=== PATIENT | male | born 1940 | race Caucasian/White ===

== ENCOUNTER 2021-02-27 14:06 | Inpatient (IN) | payer MEDICARE ==
[2021-02-27] MEDS ORDERED: PIPERACILLIN-TAZOBACTAM 3.375 GM in SODIUM CHLORIDE 0.9% 100 ML IVPB STA (15:00)
[2021-02-27] MEDS ORDERED: VANCOMYCIN IV PER PHARMACY 1 EACH MISC MISCELLANE PRN (15:07)
[2021-02-27] MEDS ORDERED: VANCOMYCIN 1,250 MG in SODIUM CHLORIDE 0.9% 250 ML IVPB STA (15:10)
--- NOTE | 2021-02-27 15:13 | ED ---
General Adult HPI - General Chief complaint: Abdominal Pain Stated complaint: Abd pain Time Seen by Provider: 02/27/21 14:15 Source: patient, family, RN notes reviewed, old records reviewed Mode of arrival: wheelchair Limitations: no limitations - History of Present Illness Initial comments: This is a 81-year-old male who presents emergency department with past medical history significant for peritoneal dialysis. Patient also has diabetes. Patient comes in today because he started complaining of abdominal pain 2 nights ago and today the dialysate was very cloudy. Patient states abdominal pain is diffuse. Family has not noted any fever chills. Patient denies any chest pain difficult breathing shortness of breath per patient denies any cough. Patient denies any swelling to the legs or calf tenderness. Patient denies any lightheadedness or dizziness. - Related Data Home Medications Medication Instructions Recorded Confirmed Apixaban [Eliquis] 2.5 mg PO BID 02/27/21 02/27/21 Aspirin EC [Ecotrin Low Dose] 162 mg PO DAILY 02/27/21 02/27/21 Atorvastatin [Lipitor] 40 mg PO HS 02/27/21 02/27/21 Furosemide [Lasix] 80 mg PO BID 02/27/21 02/27/21 Insulin Glargine,Hum.rec.anlog 17 unit SQ DAILY 02/27/21 02/27/21 [Lantus Solostar Pen] Levothyroxine Sodium [Synthroid] 50 mcg PO DAILY 02/27/21 02/27/21 Metoprolol Succinate [Toprol XL] 12.5 mg PO BID 02/27/21 02/27/21 Midodrine [ProAmatine] 10 mg PO BID 02/27/21 02/27/21 Nitroglycerin Sl Tabs [Nitrostat] 0.4 mg SUBLINGUAL Q5M PRN 02/27/21 02/27/21 Potassium Chloride [Potassium 10 meq PO DAILY 02/27/21 02/27/21 Chloride ER] Allergies Allergy/AdvReac Type Severity Reaction Status Date / Time No Known Allergies Allergy Verified 02/27/21 16:25 Review of Systems ROS Statement: Those systems with pertinent positive or pertinent negative responses have been documented in the HPI. ROS Other: All systems not noted in ROS Statement are negative. Past Medical History Past Medical History: Atrial Fibrillation, Heart Failure, Diabetes Mellitus, Dialysis, Renal Disease History of Any Multi-Drug Resistant Organisms: None Reported Past Surgical History: Cardiac Valve Replacement, Coronary Bypass/CABG, Joint Replacement, Orthopedic Surgery Past Psychological History: No Psychological Hx Reported Smoking Status: Never smoker Past Alcohol Use History: None Reported Past Drug Use History: None Reported General Exam - General Exam Comments Initial Comments: GENERAL: Patient is well-developed and well-nourished. Patient is nontoxic and well- hydrated and is in mild distress. ENT: Neck is soft and supple. No significant lymphadenopathy is noted. Oropharynx is clear. Moist mucous membranes. Neck has full range of motion without eliciting any pain. EYES: The sclera were anicteric and conjunctiva were pink and moist. Extraocular movements were intact and pupils were equal round and reactive to light. Eyelids were unremarkable. PULMONARY: Unlabored respirations. Good breath sounds bilaterally. No audible rales rhonchi or wheezing was noted. CARDIOVASCULAR: There is a regular rate and rhythm without any murmurs gallops or rubs. ABDOMEN: Diffuse abdominal tenderness SKIN: Skin is clear with no lesions or rashes and otherwise unremarkable. NEUROLOGIC: Patient is alert and oriented x3. Cranial nerves II through XII are grossly intact. Motor and sensory are also intact. Normal speech, volume and content. Symmetrical smile. MUSCULOSKELETAL: Normal extremities with adequate strength and full range of motion. No lower extremity swelling or edema. No calf tenderness. LYMPHATICS: No significant lymphadenopathy is noted PSYCHIATRIC: Normal psychiatric evaluation. Limitations: no limitations Course Vital Signs 02/27/21 14:11 Temperature 98.0 F Pulse Rate 74 Respiratory 18 Rate Blood Pressure 112/64 O2 Sat by Pulse 100 Oximetry Medical Decision Making - Medical Decision Making Patient received IV ceftazidime and vancomycin I spoke with Dr. Calloway he agreed to consult on the patient and order the appropriate intraperitoneal antibiotics. I spoke with Dr. Heller he agreed to that the patient admitted the patient wrote admitting orders EKG showed undetermined rhythm with multiple PVCs at a rate of 82 bpm QRS is under 10 Q-T intervals 4:30 QTC is 502. Patient's EKG showed a prolonged QT intervals - Lab Data Result diagrams: 02/27/21 15:48 02/27/21 15:48 Lab Results 02/27/21 02/27/21 02/27/21 Range/Units 15:48 15:48 15:48 WBC 6.7 (3.8-10.6) k/uL RBC 4.61 (4.30-5.90) m/uL Hgb 13.7 (13.0-17.5) gm/dL Hct 38.6 L (39.0-53.0) % MCV 83.7 (80.0-100.0) fL MCH 29.8 (25.0-35.0) pg MCHC 35.6 (31.0-37.0) g/dL RDW 13.7 (11.5-15.5) % Plt Count 161 (150-450) k/uL MPV 8.7 Neutrophils % 79 % Lymphocytes % 12 % Monocytes % 5 % Eosinophils % 2 % Basophils % 0 % Neutrophils # 5.3 (1.3-7.7) k/uL Lymphocytes # 0.8 L (1.0-4.8) k/uL Monocytes # 0.4 (0-1.0) k/uL Eosinophils # 0.1 (0-0.7) k/uL Basophils # 0.0 (0-0.2) k/uL Hyperchromasia Moderate Poikilocytosis Slight PT 11.0 (9.0-12.0) sec INR 1.0 (<1.2) APTT 26.8 (22.0-30.0) sec Sodium (137-145) mmol/L Potassium (3.5-5.1) mmol/L Chloride (98-107) mmol/L Carbon Dioxide (22-30) mmol/L Anion Gap mmol/L BUN (9-20) mg/dL Creatinine (0.66-1.25) mg/dL Est GFR (CKD-EPI)AfAm (>60 ml/min/1.73 sqM) Est GFR (CKD-EPI)NonAf (>60 ml/min/1.73 sqM) Glucose (74-99) mg/dL Plasma Lactic Acid John (0.7-2.0) mmol/L Calcium (8.4-10.2) mg/dL Total Bilirubin (0.2-1.3) mg/dL AST (17-59) U/L ALT (4-49) U/L Alkaline Phosphatase (38-126) U/L Lactate Dehydrogenase (313-618) U/L Total Protein (6.3-8.2) g/dL Albumin (3.5-5.0) g/dL Amylase (30-110) U/L Urine Color Yellow Urine Appearance Clear (Clear) Urine pH 5.0 (5.0-8.0) Ur Specific [place] 1.015 (1.001-1.035) Urine Protein Trace H (Negative) Urine Glucose (UA) 1+ H (Negative) Urine Ketones Negative (Negative) Urine Blood Small H (Negative) Urine Nitrite Negative (Negative) Urine Bilirubin Negative (Negative) Urine Urobilinogen <2.0 (<2.0) mg/dL Ur Leukocyte Esterase Moderate H (Negative) Urine RBC 14 H (0-5) /hpf Urine WBC 7 H (0-5) /hpf Ur Squamous Epith Cells <1 (0-4) /hpf Urine Bacteria Rare H (None) /hpf Hyaline Casts 22 H (0-2) /lpf Urine Mucus Rare H (None) /hpf 02/27/21 02/27/21 Range/Units 15:48 15:48 WBC (3.8-10.6) k/uL RBC (4.30-5.90) m/uL Hgb (13.0-17.5) gm/dL Hct (39.0-53.0) % MCV (80.0-100.0) fL MCH (25.0-35.0) pg MCHC (31.0-37.0) g/dL RDW (11.5-15.5) % Plt Count (150-450) k/uL MPV Neutrophils % % Lymphocytes % % Monocytes % % Eosinophils % % Basophils % % Neutrophils # (1.3-7.7) k/uL Lymphocytes # (1.0-4.8) k/uL Monocytes # (0-1.0) k/uL Eosinophils # (0-0.7) k/uL Basophils # (0-0.2) k/uL Hyperchromasia Poikilocytosis PT (9.0-12.0) sec INR (<1.2) APTT (22.0-30.0) sec Sodium 136 L (137-145) mmol/L Potassium 3.5 (3.5-5.1) mmol/L Chloride 94 L (98-107) mmol/L Carbon Dioxide 30 (22-30) mmol/L Anion Gap 12 mmol/L BUN 63 H (9-20) mg/dL Creatinine 4.70 H (0.66-1.25) mg/dL Est GFR (CKD-EPI)AfAm 12 (>60 ml/min/1.73 sqM) Est GFR (CKD-EPI)NonAf 11 (>60 ml/min/1.73 sqM) Glucose 182 H (74-99) mg/dL Plasma Lactic Acid John 1.6 (0.7-2.0) mmol/L Calcium 9.0 (8.4-10.2) mg/dL Total Bilirubin 1.3 (0.2-1.3) mg/dL AST 18 (17-59) U/L ALT 14 (4-49) U/L Alkaline Phosphatase 73 (38-126) U/L Lactate Dehydrogenase 457 (313-618) U/L Total Protein 7.0 (6.3-8.2) g/dL Albumin 3.6 (3.5-5.0) g/dL Amylase 55 (30-110) U/L Urine Color Urine Appearance (Clear) Urine pH (5.0-8.0) Ur Specific [place] (1.001-1.035) Urine Protein (Negative) Urine Glucose (UA) (Negative) Urine Ketones (Negative) Urine Blood (Negative) Urine Nitrite (Negative) Urine Bilirubin (Negative) Urine Urobilinogen (<2.0) mg/dL Ur Leukocyte Esterase (Negative) Urine RBC (0-5) /hpf Urine WBC (0-5) /hpf Ur Squamous Epith Cells (0-4) /hpf Urine Bacteria (None) /hpf Hyaline Casts (0-2) /lpf Urine Mucus (None) /hpf Disposition Clinical Impression: Peritoneal dialysis-associated peritonitis Disposition: ADMITTED IP TO THIS [facility] Referrals: Akanksha Gauthier MD [Primary Care Provider] - 1-2 days Time of Disposition: 18:11
[2021-02-27] MEDS: SODIUM CHLORIDE 0.9% 500 ML 500 ML IV SCH ×2 (16:43→22:15)
[2021-02-27 16:47] LABS: Albumin 3.6 g/dL (3.5-5.0); Appearance,Urine Clear (Clear); Bacteria,Urine Rare /hpf; Bilirubin,Urine Negative (Negative); Blood,Urine Small (Negative); Color,Urine Yellow; Glucose,Urine (UA) 1+ (Negative); Hyaline Casts,Urine 22 /lpf (0-2); Ketones,Urine Negative (Negative); Leukocyte Esterase,Urine Moderate (Negative); Mucus,Urine Rare /hpf; Nitrite,Urine Negative (Negative); Potassium 3.5 mmol/L (3.5-5.1); Protein,Urine Trace (Negative); RBC,Urine 14 /hpf (0-5); Specific Gravity,Urine 1.015 (1.001-1.035); Squamous Epithelial Cell,Urine <1 /hpf (0-4); Total Bilirubin 1.3 mg/dL (0.2-1.3); Urobilinogen,Urine <2.0 mg/dL (<2.0); WBC,Urine 7 /hpf (0-5)
[2021-02-27 16:50] LABS: Partial Thromboplastin Time 26.8 sec (22.0-30.0)
[2021-02-27 17:24] LABS: Basophils % (A) 0 %; Eosinophils # (A) 0.1 k/uL (0-0.7); Eosinophils % (A) 2 %; HCT 38.6 % (39.0-53.0); HGB 13.7 gm/dL (13.0-17.5); Hyperchromasia Moderate; Lymphocytes # (A) 0.8 k/uL (1.0-4.8); Lymphocytes % (A) 12 %; MCH 29.8 pg (25.0-35.0); MCHC 35.6 g/dL (31.0-37.0); MCV 83.7 fL (80.0-100.0); Mean Platelet Volume 8.7; Monocytes # (A) 0.4 k/uL (0-1.0); Monocytes % (A) 5 %; Neutrophils # (A) 5.3 k/uL (1.3-7.7); Neutrophils % (A) 79 %; Platelet Count 161 k/uL (150-450); Poikilocytosis Slight; RBC 4.61 m/uL (4.30-5.90); RDW 13.7 % (11.5-15.5); WBC 6.7 k/uL (3.8-10.6)
[2021-02-27] MEDS ORDERED: DIALYSIS (PERIT 1.5%) 2,000 ML 30 G/2,000 ML BAG INTRAPERIT SCH ×2 (18:00→23:00)
[2021-02-27] MEDS ORDERED: ONDANSETRON 4 MG/2 ML VIAL IVP PRN (19:34)
[2021-02-27] MEDS ORDERED: LACTULOSE 20 GM/30 ML CUP PO PRN (19:34)
[2021-02-27] MEDS ORDERED: NITROGLYCERIN SL TABS 0.4 MG TAB SUBLINGUAL PRN (19:34)
[2021-02-27] MEDS ORDERED: CALCIUM CARBONATE 500 MG CHEWABLE PO PRN (19:34)
[2021-02-27] MEDS ORDERED: NALOXONE 0.4 MG/ML 1 ML VIAL IV PRN (19:34)
[2021-02-27] MEDS ORDERED: MAG HYDROX/AL HYDROX/SIMETH 30 ML CUP PO PRN (19:34)
[2021-02-27] MEDS ORDERED: ALPRAZolam 0.25 MG TAB PO PRN (19:34)
[2021-02-27] MEDS ORDERED: ACETAMINOPHEN TAB 325 MG TAB PO PRN (19:34)
--- NOTE | 2021-02-27 19:54 | P.HPIM ---
History of Present Illness H&P Date: 02/27/21 Chief Complaint: Abdominal pain This is a 81-year-old patient who follows with Dr. Akanksha Gauthier. Chronic stable medical conditions include atrial fibrillation, CHF, diabetes, end-stage kidney disease on peritoneal dialysis, CAD with history of bypass, osteomyelitis, hyperlipidemia. Patient thinks he is on dialysis for last 15 months. Normally does not on dialysis. He has noticed that in the last 340s been having increasing lower abdominal pain. It is worse when he puts the dialysate inside. He is very slight nausea no vomiting. Denies any fever and chills. Appetite is okay. Recently has not is that his not a viable to give adequate his bowels completely. He has no trouble walking. He notices in the last 2 days patient yesterday that his dialysis and that came out was rather chocolatey/milky in color. In the ER patient did receive a dose of ceftazidime and vancomycin. Nephrology was consulted. Patient does make some urine. Review of systems: GEN.: Tired EYES: None HEENT: None NECK: None RESPIRATORY: None CARDIOVASCULAR: None GASTROINTESTINAL: As above GENITOURINARY: Does make some urine MUSCULOSKELETAL: Joint pains LYMPHATICS: None HEMATOLOGICAL: None PSYCHIATRY: None NEUROLOGICAL: None Past medical history to include: Atrial fibrillation, CHF, diabetes, end-stage kidney disease on peritoneal dialysis, CAD with bypass Social history: His son and [id number]. No history of smoking and alcohol Family history: Reviewed, noncontributory to presentation Physical examination: VITAL SIGNS: 98, 74, 18, 112/64, 100% room air GENERAL: BMI 24.3, sitting of vision in bed, awake, not in distress. EYES: Pupils equal. Conjunctiva normal. HEENT: External appearance of nose and ears normal, oral cavity grossly normal. NECK: JVD not raised; masses not palpable. HEART: First and second heart sounds are normal; no edema. LUNGS: Respiratory rate normal; clear to auscultation. ABDOMEN: Soft, some distention, mild tenderness, no guarding rigidity. PT catheter in place nontender, liver spleen not palpable, no masses palpable. PSYCH: Alert and oriented x3; mood and affect normal. MUSCULAR skeletal: Except for the thumb other fingers are missing. Evidence of OA in other joints. NEUROLOGICAL: Cranial nerves grossly intact; no facial asymmetry, power and sensation grossly intact. LYMPHATICS: No lymph nodes palpable in the axilla and neck INVESTIGATIONS, reviewed in the clinical context: White count 6.7 hemoglobin 13.7 platelets 161 potassium 3.5 BUN 73 creatinine 4.7 UA positive for leukoesterase, obesity, bacterial rate periods, 17 cells less than one Coronavirus [PCR]: Not detected EKG tracing personally reviewed by me shows: Atrial fibrillation. PVC. Rate controlled Assessment and plan: -Possible secondary bacterial peritonitis Patient been complaining of abdominal pain for last 3-4 days. No fever no chills. No leukocytosis. Has noticed the color of dialysate coming out to be chocolatey/milky color. Patient did receive a dose of ceftazidime and vancomycin the ER. Nephrology consulted. Darvocet fluid to be sent out for biochemical analysis and culture and Gram stain -End-stage kidney disease on peritoneal dialysis Nephrology consulted -CAD with a history of bypass Lopressor 12.5 by mouth twice a day and Lipitor, aspirin -Hyperlipidemia Lipitor 40 mg daily at bedtime -Hypothyroid Synthroid 50 g a day -Diabetes mellitus type 2 chronically on insulin Resume Lantus 17 units subcu daily. Follow Accu-Cheks -Essential hypertension Toprol-XL 12.5 by mouth twice a day -Persistent atrial fibrillation, ventricular rate controlled Eliquis 2.5 mg twice a day. Lopressor 12.5 by mouth twice a day Nephrology consulted. Ceftazidime and vancomycin given in the ER. Fluid to be sent off for Gram stain and culture. Home medications resumed. Care was discussed with the patient question also. Given the complexity and severity of patient's condition expect the patient to be in the hospital at least for 2 overnights Past Medical History Past Medical History: Atrial Fibrillation, Heart Failure, Diabetes Mellitus, Dialysis, Renal Disease History of Any Multi-Drug Resistant Organisms: None Reported Past Surgical History: Cardiac Valve Replacement, Coronary Bypass/CABG, Joint Replacement, Orthopedic Surgery Past Psychological History: No Psychological Hx Reported Smoking Status: Never smoker Past Alcohol Use History: None Reported Past Drug Use History: None Reported Medications and Allergies Home Medications Medication Instructions Recorded Confirmed Type Apixaban [Eliquis] 2.5 mg PO BID 02/27/21 02/27/21 History Aspirin EC [Ecotrin Low Dose] 162 mg PO DAILY 02/27/21 02/27/21 History Atorvastatin [Lipitor] 40 mg PO HS 02/27/21 02/27/21 History Furosemide [Lasix] 80 mg PO BID 02/27/21 02/27/21 History Insulin Glargine,Hum.rec.anlog 17 unit SQ DAILY 02/27/21 02/27/21 History [Lantus Solostar Pen] Levothyroxine Sodium [Synthroid] 50 mcg PO DAILY 02/27/21 02/27/21 History Metoprolol Succinate [Toprol XL] 12.5 mg PO BID 02/27/21 02/27/21 History Midodrine [ProAmatine] 10 mg PO BID 02/27/21 02/27/21 History Nitroglycerin Sl Tabs [Nitrostat] 0.4 mg SUBLINGUAL Q5M PRN 02/27/21 02/27/21 History Potassium Chloride [Potassium 10 meq PO DAILY 02/27/21 02/27/21 History Chloride ER] Allergies Allergy/AdvReac Type Severity Reaction Status Date / Time No Known Allergies Allergy Verified 02/27/21 16:25 Physical Exam Vitals: Vital Signs Temp Pulse Resp BP Pulse Ox 02/27/21 14:11 98.0 F 74 18 112/64 100 Intake and Output 02/27/21 02/27/21 02/27/21 06:59 14:59 22:59 Other: Weight 72.575 kg Results CBC & Chem 7: 02/27/21 15:48 02/27/21 15:48 Labs: Abnormal Lab Results - Last 24 Hours (Table) 02/27/21 02/27/21 02/27/21 Range/Units 15:48 15:48 15:48 Hct 38.6 L (39.0-53.0) % Lymphocytes # 0.8 L (1.0-4.8) k/uL Sodium 136 L (137-145) mmol/L Chloride 94 L (98-107) mmol/L BUN 63 H (9-20) mg/dL Creatinine 4.70 H (0.66-1.25) mg/dL Glucose 182 H (74-99) mg/dL Urine Protein Trace H (Negative) Urine Glucose (UA) 1+ H (Negative) Urine Blood Small H (Negative) Ur Leukocyte Esterase Moderate H (Negative) Urine RBC 14 H (0-5) /hpf Urine WBC 7 H (0-5) /hpf Urine Bacteria Rare H (None) /hpf Hyaline Casts 22 H (0-2) /lpf Urine Mucus Rare H (None) /hpf
--- NOTE | 2021-02-27 20:43 | XR ---
EXAMINATION TYPE: XR abdomen 2V DATE OF EXAM: 02/27/2021 COMPARISON: NONE HISTORY: Abdominal pain TECHNIQUE: 3 views FINDINGS: There is no sign of intestinal obstruction or pneumoperitoneum. Fecal pattern is normal. Th ere are some fibrotic changes at the lung bases. There are clips from cholecystectomy. There is appar ent dialysis catheter over the left side of the abdomen. IMPRESSION: Nonacute abdomen.
[2021-02-27] MEDS ORDERED: MIDODRINE 5 MG TAB PO SCH (21:00)
[2021-02-27] MEDS: APIXABAN 2.5 MG TABLET PO SCH (22:42)
[2021-02-27] MEDS: METOPROLOL SUCCINATE (ER) 25 MG TAB.ER.24H PO SCH (22:43)
[2021-02-27] MEDS: ATORVASTATIN 40 MG TAB PO SCH (22:43)
[2021-02-27] MEDS: FUROSEMIDE 80 MG TAB PO SCH (22:43)
[2021-02-28] MEDS ORDERED: DIALYSIS (PERIT 1.5%) 2,000 ML 30 G/2,000 ML BAG INTRAPERIT SCH ×2
[2021-02-28 02:41] LABS: Appearance,BF Hazy; Color,BF Yellow; Nucleated Cells, Body Fluid 2575 /uL; RBC, Body Fluid 38 /uL
[2021-02-28 02:42] LABS: Mononuclear WBC,Body Fluid 5 %; Polynuclear WBC,Body Fluid 95 %; Total Cells Counted,Body Fluid 100
[2021-02-28] MEDS ORDERED: INSULIN DETEMIR (LEVEMIR) 100 UNIT/ML SYR SQ SCH (07:00)
[2021-02-28 07:14] LABS: Glucose,Whole Blood 157 mg/dL (75-99)
[2021-02-28] MEDS: DIALYSIS (PERIT 1.5%) 2,000 ML 30 G/2,000 ML BAG INTRAPERIT SCH ×3 (08:46→18:48)
[2021-02-28] MEDS: POTASSIUM CHLORIDE ER 10 MEQ TAB.ER.PRT PO SCH (08:47)
[2021-02-28] MEDS: MIDODRINE 5 MG TAB PO SCH ×2 (08:47→18:03)
[2021-02-28] MEDS: ASPIRIN 81 MG PO SCH (08:47)
[2021-02-28] MEDS: FUROSEMIDE 80 MG TAB PO SCH ×2 (08:47→21:45)
[2021-02-28] MEDS: INSULIN ASPART (NovoLOG) 100 UNIT/ML VIAL SQ SCH ×4 (08:48→18:56)
[2021-02-28] MEDS: METOPROLOL SUCCINATE (ER) 25 MG TAB.ER.24H PO SCH ×2 (08:48→21:46)
[2021-02-28] MEDS: APIXABAN 2.5 MG TABLET PO SCH ×2 (08:48→21:42)
[2021-02-28] MEDS: LEVOTHYROXINE 50 MCG TAB PO SCH (08:49)
--- NOTE | 2021-02-28 10:21 | P.NPCON ---
History of Present Illness - Reason for Consult end stage renal disease - History of Present Illness Reason for consultation: End-stage renal disease History of present illness: Patient is a 81-year-old male seen in renal consultation for end-stage renal disease. He is maintained on peritoneal dialysis. Patient presented to the hospital as he noticed cloudy dialysate. He was also complaining of abdominal discomfort. No vomiting or diarrhea. No chest pain or shortness of breath. No fever or chills. No cough. Blood pressure stable. Cell count from last night came back at 2575 with 95% PMNs. He's currently receiving intraperitoneal vancomycin as well as Fortaz. Fluid culture is pending. He currently denies abdominal pain. No problems with peritoneal dialysis exchanges. Vital signs are stable. General: The patient appeared well nourished and normally developed. HEENT: Head exam is unremarkable. LUNGS: Breath sounds decreased. HEART: Rate and Rhythm are regular. ABDOMEN: Soft, mild generalized tenderness. EXTREMITITES: Trace edema. Past Medical History Past Medical History: Atrial Fibrillation, Heart Failure, Diabetes Mellitus, Dialysis, Renal Disease History of Any Multi-Drug Resistant Organisms: None Reported Past Surgical History: Cardiac Valve Replacement, Coronary Bypass/CABG, Joint Replacement, Orthopedic Surgery Past Anesthesia/Blood Transfusion Reactions: No Reported Reaction Past Psychological History: No Psychological Hx Reported Smoking Status: Never smoker Past Alcohol Use History: None Reported Past Drug Use History: None Reported Medications and Allergies Home Medications Medication Instructions Recorded Confirmed Type Apixaban [Eliquis] 2.5 mg PO BID 02/27/21 02/27/21 History Aspirin EC [Ecotrin Low Dose] 162 mg PO DAILY 02/27/21 02/27/21 History Atorvastatin [Lipitor] 40 mg PO HS 02/27/21 02/27/21 History Furosemide [Lasix] 80 mg PO BID 02/27/21 02/27/21 History Insulin Glargine,Hum.rec.anlog 17 unit SQ DAILY 02/27/21 02/27/21 History [Lantus Solostar Pen] Levothyroxine Sodium [Synthroid] 50 mcg PO DAILY 02/27/21 02/27/21 History Metoprolol Succinate [Toprol XL] 12.5 mg PO BID 02/27/21 02/27/21 History Midodrine [ProAmatine] 10 mg PO BID 02/27/21 02/27/21 History Nitroglycerin Sl Tabs [Nitrostat] 0.4 mg SUBLINGUAL Q5M PRN 02/27/21 02/27/21 History Potassium Chloride [Potassium 10 meq PO DAILY 02/27/21 02/27/21 History Chloride ER] Allergies Allergy/AdvReac Type Severity Reaction Status Date / Time No Known Allergies Allergy Verified 02/27/21 16:25 Physical Exam Vitals: Vital Signs Temp Pulse Pulse Resp BP BP Pulse Ox 02/28/21 07:36 98.2 F 69 16 109/63 98 02/28/21 05:37 98.2 F 67 16 101/52 97 02/27/21 20:35 18 116/71 02/27/21 14:11 98.0 F 74 18 112/64 100 Intake and Output 02/27/21 02/28/21 02/28/21 22:59 06:59 14:59 Intake Total 400 Balance 400 Intake: Oral 400 Other: # Voids 2 Weight 72.575 kg Results - Lab Results Most recent lab results Calcium 9.0 mg/dL (8.4-10.2) 02/27/21 15:48 02/27/21 15:48 02/27/21 15:48 Assessment and Plan Plan: Assessment: 1. End-stage renal disease maintained on peritoneal dialysis. 2. CAPD associated peritonitis. Initial cell count 2575 and 95% PMNs dated 02/28/2021. 3. Diabetes mellitus. 4. History of A. fib. 5. Hypokalemia related to Lasix and PD potassium losses. Maintain on potassium supplementation. Plan: Maintain current PD changes. Started on intraperitoneal vancomycin and Fortaz today. Continue with intraperitoneal Fortaz 1 g daily. Repeat dialysate cell count culture and Gram stain again this afternoon. Follow-up cultures. Stop IV antibiotics. Thank you for the consultation. I will continue to follow patient with you during his hospital stay.
[2021-02-28 11:47] LABS: Glucose,Whole Blood 372 mg/dL (75-99)
[2021-02-28] MEDS ORDERED: VANCOMYCIN 1,250 MG in SODIUM CHLORIDE 0.9% 250 ML IVPB ONE (12:00)
--- NOTE | 2021-02-28 15:43 | P.PN ---
Progress Note - Text Progress Note Date: 02/28/21 Chief Complaint: Abdominal pain This is a 81-year-old patient who follows with Dr. Akanksha Gauthier. Chronic stable medical conditions include atrial fibrillation, CHF, diabetes, end-stage kidney disease on peritoneal dialysis, CAD with history of bypass, osteomyelitis, hyperlipidemia. Patient thinks he is on dialysis for last 15 months. Normally does not on dialysis. He has noticed that in the last 340s been having increasing lower abdominal pain. It is worse when he puts the dialysate inside. He is very slight nausea no vomiting. Denies any fever and chills. Appetite is okay. Recently has not is that his not a viable to give adequate his bowels completely. He has no trouble walking. He notices in the last 2 days patient yesterday that his dialysis and that came out was rather chocolatey/milky in color. In the ER patient did receive a dose of ceftazidime and vancomycin. Nephrology was consulted. Patient does make some urine. Admitted with secondary peritonitis secondary to PD catheter. February 28: Abdominal pain better. Had cloudy appearing dialysate that came out. Eating better. No fever. Intraperitoneal cefepime started. Tired. Review of systems: Was done for constitutional, cardiovascular, GI, pulmonary. relevant finding as above Active Medications Acetaminophen (Acetaminophen Tab 325 Mg Tab) 650 mg PO Q6HR PRN PRN Reason: Mild Pain or Fever > 100.5 Al Hydroxide/Mg Hydroxide (Mag Hydrox/Al Hydrox/Simeth 30 Ml Cup) 15 ml PO Q6HR PRN PRN Reason: Indigestion Alprazolam (Alprazolam 0.25 Mg Tab) 0.25 mg PO Q6HR PRN PRN Reason: Anxiety Apixaban (Apixaban 2.5 Mg Tablet) 2.5 mg PO BID [facility]; Protocol Last Admin: 02/28/21 08:48 Dose: 2.5 mg Documented by: Aspirin (Aspirin 81 Mg) 162 mg PO DAILY [facility] Last Admin: 02/28/21 08:47 Dose: 162 mg Documented by: Atorvastatin Calcium (Atorvastatin 40 Mg Tab) 40 mg PO HS [facility] Last Admin: 02/27/21 22:43 Dose: 40 mg Documented by: Calcium Carbonate/Glycine (Calcium Carbonate 500 Mg Chewable) 1,000 mg PO Q4HR PRN PRN Reason: Dyspepsia Furosemide (Furosemide 80 Mg Tab) 80 mg PO BID [facility] Last Admin: 02/28/21 08:47 Dose: 80 mg Documented by: Peritoneal Dialysis Solution (Delflex With 1.5% Dextrose (2,000 Ml)) 30 g in 2,000 mls @ 0 mls/hr INTRAPERIT TID@0600,1200,1800 [facility]; Protocol Last Admin: 02/28/21 14:03 Dose: 2,000 mls/hr Documented by: Cefepime HCl 1.25 gm/ (Peritoneal Dialysis Solution) 2,000 mls @ 333.333 mls/hr INTRAPERIT DAILY@0000 [facility]; Protocol Insulin Aspart (Insulin Aspart (Novolog) 100 Unit/Ml Vial) 0 unit SQ AC-TID [facility]; Protocol Last Admin: 02/28/21 14:02 Dose: 7 unit Documented by: Insulin Detemir (Insulin Detemir (Levemir) 100 Unit/Ml Syr) 17 unit SQ DAILY@0700 [facility] Last Admin: 02/28/21 08:49 Dose: 17 unit Documented by: Lactulose (Lactulose 20 Gm/30 Ml Cup) 20 gm PO DAILY PRN PRN Reason: Constipation Levothyroxine Sodium (Levothyroxine 50 Mcg Tab) 50 mcg PO 0630 [facility] Last Admin: 02/28/21 08:49 Dose: 50 mcg Documented by: Melatonin (Melatonin 3 Mg Tablet) 3 mg PO HS PRN PRN Reason: Insomnia Metoprolol Succinate (Metoprolol Succinate (Er) 25 Mg Tab.Er.24h) 12.5 mg PO BID [facility] Last Admin: 02/28/21 08:48 Dose: 12.5 mg Documented by: Midodrine (Midodrine 5 Mg Tab) 10 mg PO BID@0600,1800 [facility] Last Admin: 02/28/21 08:47 Dose: 10 mg Documented by: Naloxone HCl (Naloxone 0.4 Mg/Ml 1 Ml Vial) 0.2 mg IV Q2M PRN PRN Reason: Opioid Reversal Nitroglycerin (Nitroglycerin Sl Tabs 0.4 Mg Tab) 0.4 mg SUBLINGUAL Q5M PRN PRN Reason: Chest Pain Ondansetron HCl (Ondansetron 4 Mg/2 Ml Vial) 4 mg IVP Q8HR PRN PRN Reason: Nausea And Vomiting Potassium Chloride (Potassium Chloride Er 10 Meq Tab.Er.Prt) 10 meq PO DAILY [facility] Last Admin: 02/28/21 08:47 Dose: 10 meq Documented by: Past medical history to include: Atrial fibrillation, CHF, diabetes, end-stage kidney disease on peritoneal dialysis, CAD with bypass Social history: His son and [id number]. No history of smoking and alcohol Family history: Reviewed, noncontributory to presentation Physical examination: VITAL SIGNS: 98.6, 81, 20, 105/50, 100% room air GENERAL: Reclining in bed, awake, tired EYES: Pupils equal. Conjunctiva normal. HEENT: External appearance of nose and ears normal, oral cavity grossly normal. NECK: JVD not raised; masses not palpable. HEART: First and second heart sounds are normal; no edema. LUNGS: Respiratory rate normal; clear to auscultation. ABDOMEN: Soft, some distention, mild tenderness, no guarding rigidity. PT catheter in place nontender, liver spleen not palpable, no masses palpable. PSYCH: Alert and oriented x3; mood and affect normal. MUSCULAR skeletal: Except for the thumb other fingers are missing. Evidence of OA in other joints. INVESTIGATIONS, reviewed in the clinical context: Dialysate fluid results: RBC 38 nucleated cells 2575 WBC 95 White count 6.7 hemoglobin 13.7 platelets 161 potassium 3.5 BUN 73 creatinine 4.7 UA positive for leukoesterase, obesity, bacterial rate periods, 17 cells less than one Coronavirus [PCR]: Not detected EKG tracing personally reviewed by me shows: Atrial fibrillation. PVC. Rate controlled Abdominal x-ray film personally reviewed by me: Some mild related small bowel loops. Assessment and plan: - secondary bacterial peritonitis in a patient with ED catheter Started on intraperitoneal Yum cefepime. -End-stage kidney disease on peritoneal dialysis Nephrology consulted -CAD with a history of bypass Lopressor 12.5 by mouth twice a day and Lipitor, aspirin -Hyperlipidemia Lipitor 40 mg daily at bedtime -Hypothyroid Synthroid 50 g a day -Diabetes mellitus type 2 chronically on insulin, uncontrolled with hyperglycemia Increase Lantus 22 units subcu daily. NovoLog 4 units with meals -Essential hypertension Toprol-XL 12.5 by mouth twice a day -Persistent atrial fibrillation, ventricular rate controlled Eliquis 2.5 mg twice a day. Lopressor 12.5 by mouth twice a day Intraperitoneal cefepime started. Nicola dialysis to continue. Other medications to continue.
[2021-02-28 17:04] LABS: Appearance,BF Cloudy; Nucleated Cells, Body Fluid 2900 /uL; RBC, Body Fluid 50 /uL
[2021-02-28 17:19] LABS: Glucose,Whole Blood 112 mg/dL (75-99)
[2021-02-28 18:29] LABS: Mononuclear WBC,Body Fluid 10 %; Polynuclear WBC,Body Fluid 89 %; Total Cells Counted,Body Fluid 100
[2021-02-28 21:11] LABS: Glucose,Whole Blood 147 mg/dL (75-99)
[2021-02-28] MEDS: ATORVASTATIN 40 MG TAB PO SCH (21:45)
[2021-02-28] MEDS: MELATONIN 3 MG TABLET PO PRN (21:46)
[2021-03-01] MEDS ORDERED: CEFEPIME INTRAPERIT SCH ×2
[2021-03-01] MEDS ORDERED: DIALYSIS DEX INTRAPERIT SCH ×2
[2021-03-01] MEDS: LEVOTHYROXINE 50 MCG TAB PO SCH (06:05)
[2021-03-01] MEDS: MIDODRINE 5 MG TAB PO SCH ×2 (06:05→18:16)
[2021-03-01] MEDS: DIALYSIS (PERIT 1.5%) 2,000 ML 30 G/2,000 ML BAG INTRAPERIT SCH ×3 (06:08→21:25)
[2021-03-01 06:40] LABS: African American GFR (CKD) 15 (>60 ml/min/1.73 sqM); Anion Gap 8 mmol/L; Blood Urea Nitrogen 56 mg/dL (9-20); Calcium 8.3 mg/dL (8.4-10.2); Carbon Dioxide 29 mmol/L (22-30); Chloride 95 mmol/L (98-107); Glucose 109 mg/dL (74-99); Magnesium 1.7 mg/dL (1.6-2.3); Non-African American GFR(CKD) 13 (>60 ml/min/1.73 sqM); Potassium 2.9 mmol/L (3.5-5.1); Sodium 132 mmol/L (137-145)
[2021-03-01 07:31] LABS: Glucose,Whole Blood 97 mg/dL (75-99)
[2021-03-01 08:59] LABS: Vancomycin,Random 15.9 ug/mL
[2021-03-01] MEDS: INSULIN ASPART (NovoLOG) 100 UNIT/ML VIAL SQ SCH ×6 (09:00→18:16)
[2021-03-01] MEDS: INSULIN DETEMIR (LEVEMIR) 100 UNIT/ML SYR SQ SCH (09:01)
[2021-03-01] MEDS: APIXABAN 2.5 MG TABLET PO SCH ×2 (09:02→21:12)
[2021-03-01] MEDS: FUROSEMIDE 80 MG TAB PO SCH ×2 (09:02→21:12)
[2021-03-01] MEDS: METOPROLOL SUCCINATE (ER) 25 MG TAB.ER.24H PO SCH ×2 (09:02→21:12)
[2021-03-01] MEDS: ASPIRIN 81 MG PO SCH (09:02)
[2021-03-01] MEDS: POTASSIUM CHLORIDE ER 10 MEQ TAB.ER.PRT PO SCH (09:03)
[2021-03-01] MEDS ORDERED: POTASSIUM CHLORIDE ER 20 MEQ TAB.ER PO STA (11:45)
--- NOTE | 2021-03-01 11:47 | P.PN ---
Subjective Patient is seen in follow-up for end-stage renal disease. He is maintained on peritonitis. Receiving intraperitoneal antibiotics. No abdominal pain. No vomiting or diarrhea. Vital signs are stable. General: The patient appeared well nourished and normally developed. HEENT: Head exam is unremarkable. LUNGS: Breath sounds decreased. HEART: Rate and Rhythm are regular. ABDOMEN: Soft, no tenderness. EXTREMITITES: No edema. Objective - Vital Signs Vital signs: Vital Signs Temp 97.5 F L 03/01/21 11:08 Pulse 58 L 03/01/21 11:08 Resp 18 03/01/21 11:08 BP 92/53 03/01/21 11:08 Pulse Ox 98 03/01/21 11:08 Intake & Output 02/28/21 03/01/21 03/01/21 18:59 06:59 18:59 Intake Total 1080 100 Balance 1080 100 Intake: Oral 1080 100 Other: Voiding Method Toilet Toilet # Voids 4 1 - Labs CBC & Chem 7: 02/27/21 15:48 03/01/21 05:26 Labs: Abnormal Lab Results - Last 24 Hours (Table) 02/28/21 02/28/21 02/28/21 Range/Units 11:39 17:16 21:05 Sodium (137-145) mmol/L Potassium (3.5-5.1) mmol/L Chloride (98-107) mmol/L BUN (9-20) mg/dL Creatinine (0.66-1.25) mg/dL Glucose (74-99) mg/dL POC Glucose (mg/dL) 372 H 112 H 147 H (75-99) mg/dL Calcium (8.4-10.2) mg/dL 03/01/21 Range/Units 05:26 Sodium 132 L (137-145) mmol/L Potassium 2.9 L (3.5-5.1) mmol/L Chloride 95 L (98-107) mmol/L BUN 56 H (9-20) mg/dL Creatinine 3.91 H (0.66-1.25) mg/dL Glucose 109 H (74-99) mg/dL POC Glucose (mg/dL) (75-99) mg/dL Calcium 8.3 L (8.4-10.2) mg/dL Microbiology - Last 24 Hours (Table) 02/28/21 01:30 Gram Stain - Preliminary Dialysate Body Fluid Culture - Preliminary 02/28/21 15:34 Gram Stain - Preliminary Peritoneal Fluid Body Fluid Culture - Preliminary 02/27/21 15:48 Blood Culture - Preliminary Blood No Growth after 24 hours 02/27/21 15:48 Blood Culture - Preliminary Blood No Growth after 24 hours Assessment and Plan Plan: Assessment: 1. End-stage renal disease maintained on peritoneal dialysis. 2. CAPD associated peritonitis. Initial cell count 2575 and 95% PMNs dated 02/28/2021; repeat was 2900 with 89% PMNs. 3. Diabetes mellitus. 4. History of A. fib. 5. Hypokalemia related to Lasix and PD potassium losses. Maintained on p otassium supplementation. Plan: Maintain current PD changes. S/p intraperitoneal vancomycin given 02/28/2021. Continue with intraperitoneal Fortaz 1 g daily - started 02/28/2021. Repeat dialysate cell count culture and Gram stain again today. Follow-up cultures. Replace potassium.
[2021-03-01 12:04] LABS: Glucose,Whole Blood 286 mg/dL (75-99)
[2021-03-01 17:17] LABS: Glucose,Whole Blood 182 mg/dL (75-99)
--- NOTE | 2021-03-01 20:28 | P.PN ---
Progress Note - Text Progress Note Date: 03/01/21 Chief Complaint: Abdominal pain This is a 81-year-old patient who follows with Dr. Akanksha Gauthier. Chronic stable medical conditions include atrial fibrillation, CHF, diabetes, end-stage kidney disease on peritoneal dialysis, CAD with history of bypass, osteomyelitis, hyperlipidemia. Patient thinks he is on dialysis for last 15 months. Normally does not on dialysis. He has noticed that in the last 340s been having increasing lower abdominal pain. It is worse when he puts the dialysate inside. He is very slight nausea no vomiting. Denies any fever and chills. Appetite is okay. Recently has not is that his not a viable to give adequate his bowels completely. He has no trouble walking. He notices in the last 2 days patient yesterday that his dialysis and that came out was rather chocolatey/milky in color. In the ER patient did receive a dose of ceftazidime and vancomycin. Nephrology was consulted. Patient does make some urine. Admitted with secondary peritonitis secondary to PD catheter. February 28: Abdominal pain better. Had cloudy appearing dialysate that came out. Eating better. No fever. Intraperitoneal cefepime started. Tired. March 01: Abdominal pain is improving. Oral intake good. No fever. Getting intraperitoneal cefepime. Peripheral dialysis. Review of systems: Was done for constitutional, cardiovascular, GI, pulmonary. relevant finding as above Active Medications Acetaminophen (Acetaminophen Tab 325 Mg Tab) 650 mg PO Q6HR PRN PRN Reason: Mild Pain or Fever > 100.5 Al Hydroxide/Mg Hydroxide (Mag Hydrox/Al Hydrox/Simeth 30 Ml Cup) 15 ml PO Q6HR PRN PRN Reason: Indigestion Alprazolam (Alprazolam 0.25 Mg Tab) 0.25 mg PO Q6HR PRN PRN Reason: Anxiety Apixaban (Apixaban 2.5 Mg Tablet) 2.5 mg PO BID [facility]; Protocol Last Admin: 03/01/21 09:02 Dose: 2.5 mg Documented by: Aspirin (Aspirin 81 Mg) 162 mg PO DAILY [facility] Last Admin: 03/01/21 09:02 Dose: 162 mg Documented by: Atorvastatin Calcium (Atorvastatin 40 Mg Tab) 40 mg PO HS [facility] Last Admin: 02/28/21 21:45 Dose: 40 mg Documented by: Calcium Carbonate/Glycine (Calcium Carbonate 500 Mg Chewable) 1,000 mg PO Q4HR PRN PRN Reason: Dyspepsia Furosemide (Furosemide 80 Mg Tab) 80 mg PO BID [facility] Last Admin: 03/01/21 09:02 Dose: 80 mg Documented by: Peritoneal Dialysis Solution (Delflex With 1.5% Dextrose (2,000 Ml)) 30 g in 2,000 mls @ 0 mls/hr INTRAPERIT TID@0000,1200,1800 [facility]; Protocol Last Admin: 03/01/21 14:31 Dose: 2,000 mls/hr Documented by: Cefepime HCl 1.25 gm/ (Peritoneal Dialysis Solution) 2,000 mls @ 333.333 mls/hr INTRAPERIT DAILY@0600 [facility]; Protocol Insulin Aspart (Insulin Aspart (Novolog) 100 Unit/Ml Vial) 0 unit SQ AC-TID [facility]; Protocol Last Admin: 03/01/21 18:16 Dose: 2 unit Documented by: Insulin Aspart (Insulin Aspart (Novolog) 100 Unit/Ml Vial) 4 unit SQ AC-TID [facility] Last Admin: 03/01/21 18:15 Dose: 4 unit Documented by: Insulin Detemir (Insulin Detemir (Levemir) 100 Unit/Ml Syr) 22 unit SQ DAILY@0700 [facility] Last Admin: 03/01/21 09:01 Dose: 22 unit Documented by: Lactulose (Lactulose 20 Gm/30 Ml Cup) 20 gm PO DAILY PRN PRN Reason: Constipation Levothyroxine Sodium (Levothyroxine 50 Mcg Tab) 50 mcg PO 0630 [facility] Last Admin: 03/01/21 06:05 Dose: 50 mcg Documented by: Melatonin (Melatonin 3 Mg Tablet) 3 mg PO HS PRN PRN Reason: Insomnia Last Admin: 02/28/21 21:46 Dose: 3 mg Documented by: Metoprolol Succinate (Metoprolol Succinate (Er) 25 Mg Tab.Er.24h) 12.5 mg PO BID [facility] Last Admin: 03/01/21 09:02 Dose: 12.5 mg Documented by: Midodrine (Midodrine 5 Mg Tab) 10 mg PO BID@0600,1800 [facility] Last Admin: 03/01/21 18:16 Dose: 10 mg Documented by: Naloxone HCl (Naloxone 0.4 Mg/Ml 1 Ml Vial) 0.2 mg IV Q2M PRN PRN Reason: Opioid Reversal Nitroglycerin (Nitroglycerin Sl Tabs 0.4 Mg Tab) 0.4 mg SUBLINGUAL Q5M PRN PRN Reason: Chest Pain Ondansetron HCl (Ondansetron 4 Mg/2 Ml Vial) 4 mg IVP Q8HR PRN PRN Reason: Nausea And Vomiting Potassium Chloride (Potassium Chloride Er 10 Meq Tab.Er.Prt) 10 meq PO DAILY [facility] Last Admin: 03/01/21 09:03 Dose: 10 meq Documented by: Past medical history to include: Atrial fibrillation, CHF, diabetes, end-stage kidney disease on peritoneal dialysis, CAD with bypass Social history: His son and [id number]. No history of smoking and alcohol Family history: Reviewed, noncontributory to presentation Physical examination: VITAL SIGNS: 97.7, 65, 16, 109/58, 99% room air GENERAL: Laying in bed, awake, EYES: Pupils equal. Conjunctiva normal. HEENT: External appearance of nose and ears normal, oral cavity grossly normal. NECK: JVD not raised; masses not palpable. HEART: First and second heart sounds are normal; no edema. LUNGS: Respiratory rate normal; clear to auscultation. ABDOMEN: Soft, some distention, minimal tenderness, no guarding rigidity. PT catheter in place nontender, liver spleen not palpable, no masses palpable. PSYCH: Alert and oriented x3; mood and affect normal. MUSCULAR skeletal: Except for the thumb other fingers are missing. Evidence of OA in other joints. INVESTIGATIONS, reviewed in the clinical context: March 01: Sodium 132 potassium 2.9 BUN 46 creatinine 3.91 Dialysate fluid results: RBC 38 nucleated cells 2575 WBC 95 White count 6.7 hemoglobin 13.7 platelets 161 potassium 3.5 BUN 73 creatinine 4.7 UA positive for leukoesterase, obesity, bacterial rate periods, 17 cells less than one Coronavirus [PCR]: Not detected EKG tracing personally reviewed by me shows: Atrial fibrillation. PVC. Rate controlled Abdominal x-ray film personally reviewed by me: Some mild related small bowel loops. Assessment and plan: - secondary bacterial peritonitis in a patient with PD catheter intraperitoneal cefepime. Received intraperitoneal vancomycin on the seventh -End-stage kidney disease on peritoneal dialysis Nephrology consulted -CAD with a history of bypass Lopressor 12.5 by mouth twice a day and Lipitor, aspirin -Hyperlipidemia Lipitor 40 mg daily at bedtime -Hypothyroid Synthroid 50 g a day -Diabetes mellitus type 2 chronically on insulin, uncontrolled with hyperglycemia Increase Lantus 22 units subcu daily. NovoLog 4 units with meals -Essential hypertension Toprol-XL 12.5 by mouth twice a day -Mild hyponatremia Encourage oral intake -Hypokalemia Adjust dialysate -Persistent atrial fibrillation, ventricular rate controlled Eliquis 2.5 mg twice a day. Lopressor 12.5 by mouth twice a day Intraperitoneal cefepime. Encourage oral intake. Other medications to continue. Follow with nephrology. Cultures negative until now
[2021-03-01 20:56] LABS: Glucose,Whole Blood 95 mg/dL (75-99)
[2021-03-01] MEDS: ATORVASTATIN 40 MG TAB PO SCH (21:12)
[2021-03-01] MEDS: MELATONIN 3 MG TABLET PO PRN (21:13)
[2021-03-02] MEDS: DIALYSIS (PERIT 1.5%) 2,000 ML 30 G/2,000 ML BAG INTRAPERIT SCH ×3 (00:10→18:27)
[2021-03-02] MEDS: CEFEPIME INTRAPERIT SCH (05:33)
[2021-03-02] MEDS: DIALYSIS DEX INTRAPERIT SCH (05:33)
[2021-03-02] MEDS: LEVOTHYROXINE 50 MCG TAB PO SCH (05:33)
[2021-03-02] MEDS: MIDODRINE 5 MG TAB PO SCH ×2 (05:33→18:29)
[2021-03-02 07:04] LABS: Glucose,Whole Blood 119 mg/dL (75-99)
[2021-03-02] MEDS: INSULIN ASPART (NovoLOG) 100 UNIT/ML VIAL SQ SCH ×6 (07:41→18:28)
[2021-03-02] MEDS: INSULIN DETEMIR (LEVEMIR) 100 UNIT/ML SYR SQ SCH (08:07)
[2021-03-02] MEDS: APIXABAN 2.5 MG TABLET PO SCH ×2 (08:08→20:56)
[2021-03-02] MEDS: METOPROLOL SUCCINATE (ER) 25 MG TAB.ER.24H PO SCH ×2 (08:08→20:55)
[2021-03-02] MEDS: FUROSEMIDE 80 MG TAB PO SCH ×2 (08:08→20:55)
[2021-03-02] MEDS: ASPIRIN 81 MG PO SCH (08:08)
[2021-03-02] MEDS: POTASSIUM CHLORIDE ER 10 MEQ TAB.ER.PRT PO SCH (08:09)
[2021-03-02 09:51] LABS: African American GFR (CKD) 17.1 (60.0-200.0); Anion Gap 13.7 mmol/L (10.00-18.00); BUN/Creat Ratio 13.53 Ratio (12.00-20.00); Blood Urea Nitrogen 48.7 mg/dL (9.0-27.0); Calcium 8.4 mg/dL (8.7-10.3); Carbon Dioxide 26.3 mmol/L (20.0-27.5); Magnesium 1.7 mg/dL (1.5-2.4); Non-African American GFR(CKD) 14.7 (60.0-200.0); Potassium 3.3 mmol/L (3.5-5.5)
[2021-03-02] MEDS ORDERED: POTASSIUM CHLORIDE ER 20 MEQ TAB.ER PO STA (10:35)
--- NOTE | 2021-03-02 10:38 | P.PN ---
Subjective Patient is seen in follow-up for end-stage renal disease. He is maintained on peritonitis. Receiving intraperitoneal antibiotics. No abdominal pain. No vomiting or diarrhea. Vital signs are stable. General: The patient appeared well nourished and normally developed. HEENT: Head exam is unremarkable. LUNGS: Breath sounds decreased. HEART: Rate and Rhythm are regular. ABDOMEN: Soft, no tenderness. EXTREMITITES: No edema. Objective - Vital Signs Vital signs: Vital Signs Temp 98.6 F 03/02/21 05:35 Pulse 70 03/02/21 08:06 Resp 18 03/02/21 05:35 BP 128/64 03/02/21 08:06 Pulse Ox 99 03/02/21 05:35 Intake & Output 03/01/21 03/02/21 03/02/21 18:59 06:59 18:59 Intake Total 360 Balance 360 Intake: Oral 360 Other: Voiding Method Toilet # Voids 3 # Bowel Movements 1 - Labs CBC & Chem 7: 02/27/21 15:48 03/02/21 05:39 Labs: Abnormal Lab Results - Last 24 Hours (Table) 03/01/21 03/01/21 03/02/21 Range/Units 12:01 17:08 05:39 Potassium 3.3 L (3.5-5.5) mmol/L Chloride 95 L (96-109) mmol/L BUN 48.7 H (9.0-27.0) mg/dL Creatinine 3.6 H (0.6-1.5) mg/dL Est GFR (CKD-EPI)AfAm 17.1 L (60.0-200.0) Est GFR (CKD-EPI)NonAf 14.7 L (60.0-200.0) POC Glucose (mg/dL) 286 H 182 H (75-99) mg/dL Calcium 8.4 L (8.7-10.3) mg/dL 03/02/21 Range/Units 07:03 Potassium (3.5-5.5) mmol/L Chloride (96-109) mmol/L BUN (9.0-27.0) mg/dL Creatinine (0.6-1.5) mg/dL Est GFR (CKD-EPI)AfAm (60.0-200.0) Est GFR (CKD-EPI)NonAf (60.0-200.0) POC Glucose (mg/dL) 119 H (75-99) mg/dL Calcium (8.7-10.3) mg/dL Microbiology - Last 24 Hours (Table) 03/01/21 15:00 Body Fluid Culture - Preliminary Peritoneal Fluid 02/28/21 15:34 Gram Stain - Preliminary Peritoneal Fluid Body Fluid Culture - Preliminary 02/27/21 15:48 Blood Culture - Preliminary Blood No Growth after 48 hours 02/27/21 15:48 Blood Culture - Preliminary Blood No Growth after 48 hours 02/28/21 01:30 Gram Stain - Preliminary Dialysate Body Fluid Culture - Preliminary Assessment and Plan Plan: Assessment: 1. End-stage renal disease maintained on peritoneal dialysis. 2. CAPD associated peritonitis. Initial cell count 2575 and 95% PMNs dated 02/28/2021; repeat was 2900 with 89% PMNs. Repeat pending. Dialysate clear per nurse today. 3. Diabetes mellitus. 4. History of A. fib. 5. Hypokalemia related to Lasix and PD potassium losses. Maintained on potassium supplementation. Plan: Maintain current PD changes. S/p intraperitoneal vancomycin given 02/28/2021. Continue with intraperitoneal Fortaz 1 g daily - started 02/28/2021. Repeat dialysate cell count culture and Gram stain again today - wasn't done yesterday. Follow-up cultures. Replace potassium.
[2021-03-02 10:53] LABS: Appearance,BF Cloudy; Color,BF Yellow; Nucleated Cells, Body Fluid 1280 /uL; RBC, Body Fluid 10 /uL
[2021-03-02 11:01] LABS: Mononuclear WBC,Body Fluid 1 %; Polynuclear WBC,Body Fluid 99 %; Total Cells Counted,Body Fluid 100
[2021-03-02 12:35] LABS: Glucose,Whole Blood 189 mg/dL (75-99)
--- NOTE | 2021-03-02 17:04 | P.PN ---
Progress Note - Text Progress Note Date: 03/02/21 Chief Complaint: Abdominal pain This is a 81-year-old patient who follows with Dr. Akanksha Gauthier. Chronic stable medical conditions include atrial fibrillation, CHF, diabetes, end-stage kidney disease on peritoneal dialysis, CAD with history of bypass, osteomyelitis, hyperlipidemia. Patient thinks he is on dialysis for last 15 months. Normally does not on dialysis. He has noticed that in the last 340s been having increasing lower abdominal pain. It is worse when he puts the dialysate inside. He is very slight nausea no vomiting. Denies any fever and chills. Appetite is okay. Recently has not is that his not a viable to give adequate his bowels completely. He has no trouble walking. He notices in the last 2 days patient yesterday that his dialysis and that came out was rather chocolatey/milky in color. In the ER patient did receive a dose of ceftazidime and vancomycin. Nephrology was consulted. Patient does make some urine. Admitted with secondary peritonitis secondary to PD catheter. February 28: Abdominal pain better. Had cloudy appearing dialysate that came out. Eating better. No fever. Intraperitoneal cefepime started. Tired. March 01: Abdominal pain is improving. Oral intake good. No fever. Getting intraperitoneal cefepime. Peripheral dialysis. March 02: Abdominal pain much improved. Oral intake good. Getting intraperitoneal cefepime. Peripheral dialysis. Repeat fluid analysis is being sent off today. Review of systems: Was done for constitutional, cardiovascular, GI, pulmonary. relevant finding as above Past medical history to include: Atrial fibrillation, CHF, diabetes, end-stage kidney disease on peritoneal dialysis, CAD with bypass Social history: His son and [id number]. No history of smoking and alcohol Family history: Reviewed, noncontributory to presentation Physical examination: VITAL SIGNS: 97.4, 63, 18, 102/55, 100% room air GENERAL: Sitting at the edge of the bed, comfortable EYES: Pupils equal. Conjunctiva normal. HEENT: External appearance of nose and ears normal, oral cavity grossly normal. NECK: JVD not raised; masses not palpable. HEART: First and second heart sounds are normal; no edema. LUNGS: Respiratory rate normal; clear to auscultation. ABDOMEN: Soft, some distention, minimal tenderness, no guarding rigidity. PT catheter in place nontender, liver spleen not palpable, no masses palpable. PSYCH: Alert and oriented x3; mood and affect normal. MUSCULAR skeletal: Except for the thumb other fingers are missing. Evidence of OA in other joints. INVESTIGATIONS, reviewed in the clinical context: March 02: Sodium 135 potassium 3.3 creatinine 3.6 Dialysate fluid culture [February 28]: Gram-negative bacilli March 01: Sodium 132 potassium 2.9 BUN 46 creatinine 3.91 Dialysate fluid results: RBC 38 nucleated cells 2575 WBC 95 White count 6.7 hemoglobin 13.7 platelets 161 potassium 3.5 BUN 73 creatinine 4.7 UA positive for leukoesterase, obesity, bacterial rate periods, 17 cells less than one Coronavirus [PCR]: Not detected EKG tracing personally reviewed by me shows: Atrial fibrillation. PVC. Rate controlled Abdominal x-ray film personally reviewed by me: Some mild related small bowel loops. Assessment and plan: - secondary bacterial peritonitis in a patient with PD catheter, growing gram- negative bacilli intraperitoneal cefepime. Received intraperitoneal vancomycin on the seventh -End-stage kidney disease on peritoneal dialysis Nephrology consulted -CAD with a history of bypass Lopressor 12.5 by mouth twice a day and Lipitor, aspirin -Hyperlipidemia Lipitor 40 mg daily at bedtime -Hypothyroid Synthroid 50 g a day -Diabetes mellitus type 2 chronically on insulin, uncontrolled with hyperglycemia Increase Lantus 22 units subcu daily. NovoLog 4 units with meals -Essential hypertension Toprol-XL 12.5 by mouth twice a day -Mild hyponatremia Encourage oral intake -Hypokalemia Adjust dialysate -Persistent atrial fibrillation, ventricular rate controlled Eliquis 2.5 mg twice a day. Lopressor 12.5 by mouth twice a day Intraperitoneal cefepime. Continue current treatment plan. Discussed with patient. Await culture results.
[2021-03-02 17:50] LABS: Glucose,Whole Blood 155 mg/dL (75-99)
[2021-03-02 20:35] LABS: Glucose,Whole Blood 195 mg/dL (75-99)
[2021-03-02] MEDS: ATORVASTATIN 40 MG TAB PO SCH (20:56)
[2021-03-03] MEDS: DIALYSIS (PERIT 1.5%) 2,000 ML 30 G/2,000 ML BAG INTRAPERIT SCH ×2 (00:12→12:45)
[2021-03-03 04:35] LABS: Color,BF Colorless
[2021-03-03 04:36] LABS: Appearance,BF Clear; Nucleated Cells, Body Fluid 44 /uL; RBC, Body Fluid 16 /uL
[2021-03-03 04:38] LABS: Mononuclear WBC,Body Fluid 34 %; Polynuclear WBC,Body Fluid 66 %; Total Cells Counted,Body Fluid 100
[2021-03-03 05:13] LABS: African American GFR (CKD) 18 (>60 ml/min/1.73 sqM); Anion Gap 7 mmol/L; Blood Urea Nitrogen 49 mg/dL (9-20); Calcium 8.1 mg/dL (8.4-10.2); Carbon Dioxide 28 mmol/L (22-30); Chloride 96 mmol/L (98-107); Glucose 127 mg/dL (74-99); Magnesium 1.6 mg/dL (1.6-2.3); Non-African American GFR(CKD) 16 (>60 ml/min/1.73 sqM); Potassium 3.4 mmol/L (3.5-5.1); Sodium 131 mmol/L (137-145)
[2021-03-03] MEDS: CEFEPIME INTRAPERIT SCH (05:16)
[2021-03-03] MEDS: DIALYSIS DEX INTRAPERIT SCH (05:16)
[2021-03-03] MEDS: LEVOTHYROXINE 50 MCG TAB PO SCH (05:55)
[2021-03-03] MEDS: POTASSIUM CHLORIDE ER 10 MEQ TAB.ER.PRT PO SCH (07:15)
[2021-03-03] MEDS: METOPROLOL SUCCINATE (ER) 25 MG TAB.ER.24H PO SCH (07:15)
[2021-03-03] MEDS: MIDODRINE 5 MG TAB PO SCH (07:15)
[2021-03-03] MEDS: ASPIRIN 81 MG PO SCH (07:15)
[2021-03-03] MEDS: INSULIN DETEMIR (LEVEMIR) 100 UNIT/ML SYR SQ SCH (07:16)
[2021-03-03] MEDS: FUROSEMIDE 80 MG TAB PO SCH (07:16)
[2021-03-03] MEDS: APIXABAN 2.5 MG TABLET PO SCH (07:16)
[2021-03-03 07:33] LABS: Glucose,Whole Blood 118 mg/dL (75-99)
[2021-03-03] MEDS: INSULIN ASPART (NovoLOG) 100 UNIT/ML VIAL SQ SCH ×6 (07:38→17:05)
[2021-03-03] MEDS ORDERED: POTASSIUM CHLORIDE ER 20 MEQ TAB.ER PO STA (10:15)
--- NOTE | 2021-03-03 10:17 | P.PN ---
Subjective Patient is seen in follow-up for end-stage renal disease. He is maintained on peritonitis. Receiving intraperitoneal antibiotics. No abdominal pain. No vomiting or diarrhea. Vital signs are stable. General: The patient appeared well nourished and normally developed. HEENT: Head exam is unremarkable. LUNGS: Breath sounds decreased. HEART: Rate and Rhythm are regular. ABDOMEN: Soft, no tenderness. EXTREMITITES: No edema. Objective - Vital Signs Vital signs: Vital Signs Temp 97.5 F L 03/03/21 04:28 Pulse 71 03/03/21 07:14 Resp 16 03/03/21 04:28 BP 136/70 03/03/21 07:14 Pulse Ox 100 03/03/21 04:28 Intake & Output 03/02/21 03/03/21 03/03/21 18:59 06:59 18:59 Intake Total 1260 Balance 1260 Intake: Oral 1260 Other: Voiding Method Toilet # Voids 3 - Labs CBC & Chem 7: 02/27/21 15:48 03/03/21 03:59 Labs: Abnormal Lab Results - Last 24 Hours (Table) 03/02/21 03/02/21 03/02/21 Range/Units 12:11 17:41 20:33 Sodium (137-145) mmol/L Potassium (3.5-5.1) mmol/L Chloride (98-107) mmol/L BUN (9-20) mg/dL Creatinine (0.66-1.25) mg/dL Glucose (74-99) mg/dL POC Glucose (mg/dL) 189 H 155 H 195 H (75-99) mg/dL Calcium (8.4-10.2) mg/dL 03/03/21 03/03/21 Range/Units 03:59 07:27 Sodium 131 L (137-145) mmol/L Potassium 3.4 L (3.5-5.1) mmol/L Chloride 96 L (98-107) mmol/L BUN 49 H (9-20) mg/dL Creatinine 3.44 H (0.66-1.25) mg/dL Glucose 127 H (74-99) mg/dL POC Glucose (mg/dL) 118 H (75-99) mg/dL Calcium 8.1 L (8.4-10.2) mg/dL Microbiology - Last 24 Hours (Table) 03/01/21 15:00 Gram Stain - Preliminary Peritoneal Fluid Body Fluid Culture - Preliminary 02/28/21 15:34 Gram Stain - Preliminary Peritoneal Fluid Body Fluid Culture - Preliminary 02/27/21 15:48 Blood Culture - Preliminary Blood No Growth after 72 hours 02/27/21 15:48 Blood Culture - Preliminary Blood No Growth after 72 hours 02/28/21 01:30 Gram Stain - Preliminary Dialysate Body Fluid Culture - Preliminary Gram Neg Bacilli Assessment and Plan Plan: Assessment: 1. End-stage renal disease maintained on peritoneal dialysis. 2. CAPD associated peritonitis. Initial cell count 2575 and 95% PMNs dated 02/28/2021; repeat was 2900 with 89% PMNs. Cell count now trending down - cell count 44 with 66% PMNs from today. Dialysate culture positive for gram-negative bacilli. Dialysate clear per nurse. 3. Diabetes mellitus. 4. History of A. fib. 5. Hypokalemia related to Lasix and PD potassium losses. Maintained on potassium supplementation. Plan: Maintain current PD changes. S/p intraperitoneal vancomycin given 02/28/2021 - no need for further doses as cultures positive for gram-negative bacilli. Continue with intraperitoneal Fortaz 1 g daily - started 02/28/2021 - this will be continued for an additional 2 weeks. Follow-up cultures. Replace potassium. galley worker working on placement. Patient wants to go home to his son. If goes to rehab, will need to switch to hemodialysis.
[2021-03-03] MEDS: MAGNESIUM SULFATE-D5W PMX 1 GM in DEXTROSE/WATER 1 100ML.BAG IVPB SCH ×2 (10:32→12:45)
[2021-03-03 12:44] LABS: Glucose,Whole Blood 116 mg/dL (75-99)
[2021-03-03 14:01] VITALS: BP 107/48; PULSE 59; RESP 19; TEMP 97.9
--- NOTE | 2021-03-03 17:19 | P.DS ---
Providers Date of admission: 02/27/21 18:14 Expected date of discharge: 03/03/21 Attending physician: Jose Heller Consults: 02/27/21 18:11 Consult Physician Urgent Consulting Provider: Sebastian Calloway Consult Reason/Comments: Peritonitis Do you want consulting provider notified?: Yes Primary care physician: Akanksha Gauthier [facility] Course: Chief Complaint: Abdominal pain This is a 81-year-old patient who follows with Dr. Akanksha Gauthier. Chronic stable medical conditions include atrial fibrillation, CHF, diabetes, end-stage kidney disease on peritoneal dialysis, CAD with history of bypass, osteomyelitis, hyperlipidemia. Patient thinks he is on dialysis for last 15 months. Normally does not on dialysis. He has noticed that in the last 340s been having increasing lower abdominal pain. It is worse when he puts the dialysate inside. He is very slight nausea no vomiting. Denies any fever and chills. Appetite is okay. Recently has not is that his not a viable to give adequate his bowels completely. He has no trouble walking. He notices in the last 2 days patient yesterday that his dialysis and that came out was rather chocolatey/milky in color. In the ER patient did receive a dose of ceftazidime and vancomycin. Nephrology was consulted. Patient does make some urine. Admitted with secondary peritonitis secondary to PD catheter. Cloudy dialysis started to improve.. Intraperitoneal cefepime continued. Patient had received vancomycin. Patient diet improved. No further fever. Abdominal pain improved. Today: Feeling much better. No fever no chills. Good oral intake. Walk in the hallway. 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 Discussed with patient. Discussion and discharge planning more than 35 minutes Consultation: Dr. Calloway from nephrology Past medical history to include: Atrial fibrillation, CHF, diabetes, end-stage kidney disease on peritoneal dialysis, CAD with bypass Social history: His son and [id number]. No history of smoking and alcohol Family history: Reviewed, noncontributory to presentation Physical examination: VITAL SIGNS: 97.9, 59, 19, 107/48, 98% room air GENERAL: Sitting at the edge of the bed, comfortable EYES: Pupils equal. Conjunctiva normal. HEENT: External appearance of nose and ears normal, oral cavity grossly normal. NECK: JVD not raised; masses not palpable. HEART: First and second heart sounds are normal; no edema. LUNGS: Respiratory rate normal; clear to auscultation. ABDOMEN: Soft, some distention, no tenderness, no guarding rigidity. PT catheter in place nontender, liver spleen not palpable, no masses palpable. PSYCH: Alert and oriented x3; mood and affect normal. MUSCULAR skeletal: Right hand: Except for the thumb other fingers are missing. Evidence of OA in other joints. INVESTIGATIONS, reviewed in the clinical context: March 03: Sodium 131 creatinine 3.44 magnesia 1.6 Dialysate fluid culture: Enterobacter cloacae Dialysate fluid [March 03]: No treated cells 44 March 02: Sodium 135 potassium 3.3 creatinine 3.6 Dialysate fluid culture [February 28]: Gram-negative bacilli March 01: Sodium 132 potassium 2.9 BUN 46 creatinine 3.91 Dialysate fluid results: RBC 38 nucleated cells 2575 WBC 95 White count 6.7 hemoglobin 13.7 platelets 161 potassium 3.5 BUN 73 creatinine 4.7 UA positive for leukoesterase, obesity, bacterial rate periods, 17 cells less than one Coronavirus [PCR]: Not detected EKG tracing personally reviewed by me shows: Atrial fibrillation. PVC. Rate controlled Abdominal x-ray film personally reviewed by me: Some mild related small bowel loops. Assessment and plan: - secondary bacterial peritonitis in a patient with PD catheter, growing Enterobacter cloacae. intraperitoneal cefepime. Received intraperitoneal vancomycin on the seventh. Repeat peritoneal fluid biochemistry improved Intraperitoneal antibiotic will be continued for 2 weeks. -End-stage kidney disease on peritoneal dialysis Nephrology consulted -CAD with a history of bypass Lopressor 12.5 by mouth twice a day and Lipitor, aspirin -Hyperlipidemia Lipitor 40 mg daily at bedtime -Hypothyroid Synthroid 50 g a day -Diabetes mellitus type 2 chronically on insulin, Lantus 17 units -Essential hypertension Toprol-XL 12.5 by mouth twice a day -Mild hyponatremia Encourage oral intake -Hypokalemia Adjust dialysate -Persistent atrial fibrillation, ventricular rate controlled Eliquis 2.5 mg twice a day. Lopressor 12.5 by mouth twice a day Disposition: Home Patient Condition at Discharge: Fair Plan - Discharge Summary Discharge Rx Participant: No New Discharge Prescriptions: Continue Levothyroxine Sodium [Synthroid] 50 mcg PO DAILY Insulin Glargine,Hum.rec.anlog [Lantus Solostar Pen] 17 unit SQ DAILY Nitroglycerin Sl Tabs [Nitrostat] 0.4 mg SUBLINGUAL Q5M PRN PRN Reason: Chest Pain Metoprolol Succinate [Toprol XL] 12.5 mg PO BID Furosemide [Lasix] 80 mg PO BID Apixaban [Eliquis] 2.5 mg PO BID Midodrine [ProAmatine] 10 mg PO BID Atorvastatin [Lipitor] 40 mg PO HS Potassium Chloride [Potassium Chloride ER] 10 meq PO DAILY Aspirin EC [Ecotrin Low Dose] 162 mg PO DAILY Discharge Medication List Apixaban [Eliquis] 2.5 mg PO BID 02/27/21 [History] Aspirin EC [Ecotrin Low Dose] 162 mg PO DAILY 02/27/21 [History] Atorvastatin [Lipitor] 40 mg PO HS 02/27/21 [History] Furosemide [Lasix] 80 mg PO BID 02/27/21 [History] Insulin Glargine,Hum.rec.anlog [Lantus Solostar Pen] 17 unit SQ DAILY 02/27/21 [History] Levothyroxine Sodium [Synthroid] 50 mcg PO DAILY 02/27/21 [History] Metoprolol Succinate [Toprol XL] 12.5 mg PO BID 02/27/21 [History] Midodrine [ProAmatine] 10 mg PO BID 02/27/21 [History] Nitroglycerin Sl Tabs [Nitrostat] 0.4 mg SUBLINGUAL Q5M PRN 02/27/21 [History] Potassium Chloride [Potassium Chloride ER] 10 meq PO DAILY 02/27/21 [History] Follow up Appointment(s)/Referral(s): Akanksha Gauthier MD [Primary Care Provider] - 1-2 days
== END 2021-03-03 17:10 | disposition home health service (06) | DRG 867 ==
LOC: EEVIPCON 14:06 → EC 14:06 → 5NMEDONC 18:14
PROVIDERS: ADMIT Hospitalist; ATTEND Hospitalist
DX: T80.29XA Infection following other infusion, transfusion and therapeutic injection, initial encounter (principal); N18.6 End stage renal disease; K65.8 Other peritonitis; E87.1 Hypo-osmolality and hyponatremia; I13.2 Hypertensive heart and chronic kidney disease with heart failure and with stage 5 chronic kidney disease, or end stage renal disease; I48.19 Other persistent atrial fibrillation; M86.60 Other chronic osteomyelitis, unspecified site; R10.9 Unspecified abdominal pain; E03.9 Hypothyroidism, unspecified; E11.65 Type 2 diabetes mellitus with hyperglycemia; E11.22 Type 2 diabetes mellitus with diabetic chronic kidney disease; E78.5 Hyperlipidemia, unspecified; E87.6 Hypokalemia; I25.10 Atherosclerotic heart disease of native coronary artery without angina pectoris; I49.3 Ventricular premature depolarization; I50.9 Heart failure, unspecified; Z20.822 Contact with and (suspected) exposure to COVID-19; Y84.1 Kidney dialysis as the cause of abnormal reaction of the patient, or of later complication, without mention of misadventure at the time of the procedure; Z79.01 Long term (current) use of anticoagulants; Z79.4 Long term (current) use of insulin; Z79.82 Long term (current) use of aspirin; Z79.890 Hormone replacement therapy; Z79.899 Other long term (current) drug therapy; Z95.1 Presence of aortocoronary bypass graft; Z95.2 Presence of prosthetic heart valve; Z99.2 Dependence on renal dialysis; E11.69 Type 2 diabetes mellitus with other specified complication
CPT/HCPCS: 36415; 74019; 80048; 80053; 80202; 81001; 82150; 83605; 83615; 83735; 85025; 85610; 85730; 87040; 87070; 87077; 87186; 87205; 87635; 89050; 93005; 96365; 99284